=== PATIENT | female | born 1970 | race Caucasian/White ===

== ENCOUNTER 2021-08-08 12:10 | Emergency (ER) | payer OTHER ==
[~2021-08-08] VITALS: Ht 162.6 cm; Wt 84.4 kg
[2021-08-08 12:19] VITALS: BP 124/82
[2021-08-08] MEDS ORDERED: CARI350T PO (12:36)
[2021-08-08] MEDS ORDERED: HYDR-4303 PO (12:36)
--- NOTE | 2021-08-08 12:48 | NUR ---
Patient discharged to home in stable condition. Written and verbal after care instructions given. Patient verbalizes understanding of instruction.
== END 2021-08-08 12:49 | disposition home or self-care (01) ==
LOC: ER 12:14
DX: M54.50 Low back pain, unspecified (principal); I10 Essential (primary) hypertension; F32.A Depression, unspecified; Z79.899 Other long term (current) drug therapy

== ENCOUNTER 2022-02-04 11:32 | Emergency (ER) | payer OTHER ==
[~2022-02-04] VITALS: Ht 162.6 cm; Wt 77.1 kg
[~2022-02-04 11:32] MED LIST: CARI350T PO; HYDR-4303 PO
[2022-02-04] MEDS ORDERED: KETOROLAC TROMETHAMINE INJ 30 MG/ML VIAL ONE (12:26)
[2022-02-04] MEDS ORDERED: KETOROLAC TROMETHAMINE INJ 30 MG/ML VIAL IM ONE (12:30)
[2022-02-04 14:20] VITALS: BP 120/88
--- NOTE | 2022-02-04 14:20 | NUR ---
Patient discharged to home in stable condition. Written and verbal after care instructions given. Patient verbalizes understanding of instruction.
== END 2022-02-04 14:21 | disposition home or self-care (01) ==
LOC: ER 11:38
DX: M13.812 Other specified arthritis, left shoulder (principal); M25.512 Pain in left shoulder; I10 Essential (primary) hypertension; E78.5 Hyperlipidemia, unspecified; F32.A Depression, unspecified; Z79.899 Other long term (current) drug therapy
CPT/HCPCS: 99283; 96372; 73030; J1885